=== PATIENT | female | born 1960 | race Caucasian/White ===

== ENCOUNTER → 2021-02-03 | Outpatient (CLI) | payer OTHER ==
[~2021-02-03] MED LIST: ARMOUR THYROID30 M1; RESTASIS1 EACH; VAGIFEM10 MCG; VIVELLE-DOT1 EAC1
== END ==
LOC: SJCVCIMAG 15:39
PROVIDERS: ATTEND Internal Medicine Cardiovascular Disease
DX: I70.1 Atherosclerosis of renal artery (principal); R94.31 Abnormal electrocardiogram [ECG] [EKG]; R93.1 Abnormal findings on diagnostic imaging of heart and coronary circulation; E78.00 Pure hypercholesterolemia, unspecified; R01.1 Cardiac murmur, unspecified; R53.83 Other fatigue; R06.02 Shortness of breath; Z72.89 Other problems related to lifestyle; Z79.899 Other long term (current) drug therapy